=== PATIENT | female | born 1980 | race Caucasian/White ===

== ENCOUNTER 2019-03-28 09:52 | Emergency (ER) | payer MEDICAID, OTHER ==
[2019-03-28] MEDS ORDERED: NORMAL SALINE 1000 ML 1,000 ML IV ONE (10:29)
--- NOTE | 2019-03-28 10:31 | ER Document Report ---
ED Medical Screen (RME) - General Chief Complaint: Vomiting Stated Complaint: VOMITING Time Seen by Provider: 03/28/19 10:24 Primary Care Provider: THAO GARCIA MD [Primary Care Provider] - Follow up as needed Mode of Arrival: Wheelchair Information source: Patient Notes: Presents to the emergency department with complaints of nausea vomiting since . She reports she was evaluated and treated at [facility] emergency department on . She reports she was given an IV with fluids and a prescription for Phenergan and Zofran. She reports she still cannot stop vomiting. She reports as soon as the medications wear off she becomes nauseated and it if she attempts to drink anything she vomits. Denies fever and diarrhea. No other family members ill. Denies . 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 Reports she voided this morning without problems. Reports her chest is hurting now from vomiting so much. I have greeted and performed a rapid initial assessment of this patient. A comprehensive ED assessment and evaluation of the patient, analysis of test results and completion of the medical decision making process will be conducted by additional ED providers. Dictation of this chart was performed using voice recognition software; therefore, there may be some unintended grammatical errors. TRAVEL OUTSIDE OF THE [place] IN LAST 30 DAYS: No - Related Data Allergies/Adverse Reactions: No Known Allergies Allergy (Verified 03/28/19 10:19) Physical Exam - Vital signs Vitals: Temp Pulse Resp BP Pulse Ox 98.5 F 90 16 109/71 99 03/28/19 10:16 03/28/19 10:16 03/28/19 10:16 03/28/19 10:16 03/28/19 10:16 Course - Vital Signs Vital signs: Temp Pulse Resp BP Pulse Ox 98.5 F 90 16 109/71 99 03/28/19 10:16 03/28/19 10:16 03/28/19 10:16 03/28/19 10:16 03/28/19 10:16 Doctor's Discharge - Discharge Referrals: THAO GARCIA MD [Primary Care Provider] - Follow up as needed
[2019-03-28 11:04] LABS: ABSOLUTE LYMPHOCYTES (AUTO) 1.3 10^3/uL (0.5-4.7); ABSOLUTE MONOCYTES (AUTO) 0.9 10^3/uL (0.1-1.4); ABSOLUTE NEUT (AUTO) 12.7 10^3/uL (1.7-8.2); BASOPHILS % (AUTO) 0.3 % (0-2); EOSINOPHILS % (AUTO) 0.1 % (0-6); HEMATOCRIT 41.4 % (36.0-47.0); HEMOGLOBIN 14.1 g/dL (12.0-15.5); LYMPHOCYTES % (AUTO) 8.7 % (13-45); MEAN CORPUSCULAR HEMOGLOBIN 30.4 pg (27.0-33.4); MEAN CORPUSCULAR HGB CONC 34.1 g/dL (32.0-36.0); MEAN CORPUSCULAR VOLUME 89 fl (80-97); MONOCYTES % (AUTO) 6.2 % (3-13); PLATELET COUNT 244 10^3/uL (150-450); RED BLOOD COUNT 4.65 10^6/uL (3.72-5.28); RED CELL DISTRIBUTION WIDTH 13.5 % (11.5-14.0); SEGMENTED NEUTROPHILS % (AUTO) 84.7 % (42-78); TOTAL CELLS COUNTED % (AUTO) 100 %
[2019-03-28 11:19] LABS: AMORPHOUS SEDIMENT,URINE TRACE /HPF; APPEARANCE,URINE CLOUDY; BILIRUBIN,URINE NEGATIVE (NEGATIVE); COLOR,URINE AMBER; GLUCOSE, URINE NEGATIVE (NEGATIVE); KETONES,URINE 80 mg/dL (NEGATIVE); LEUKOCYTE ESTERASE,URINE TRACE (NEGATIVE); NITRITE,URINE NEGATIVE (NEGATIVE); PROTEIN,URINE 30 mg/dL (NEGATIVE)
[2019-03-28 11:20] LABS: ALANINE AMINOTRANSFERASE 24 U/L (9-52); ALBUMIN 4.3 g/dL (3.5-5.0); ALKALINE PHOSPHATASE 46 U/L (38-126); ANION GAP 8 (5-19); ASPARTATE AMINO TRANSFERASE 24 U/L (14-36); BILIRUBIN,DIRECT 0.2 mg/dL (0.0-0.4); BLOOD UREA NITROGEN 15 mg/dL (7-20); CALCIUM 9.6 mg/dL (8.4-10.2); CARBON DIOXIDE 26 mmol/L (22-30); CHLORIDE 110 mmol/L (98-107); GLUCOSE 97 mg/dL (75-110); POTASSIUM 3.8 mmol/L (3.6-5.0); SODIUM 143.5 mmol/L (137-145); TOTAL PROTEIN 7.1 g/dL (6.3-8.2)
[2019-03-28] MEDS ORDERED: DEXTROSE 5%-NORMAL SALINE 1,000 ML IV ONE (13:44)
[2019-03-28] MEDS ORDERED: KETOROLAC TROMETHAMINE INJ/PF 30 MG/1 ML SDV IV ONE (13:45)
[2019-03-28] MEDS ORDERED: ONDANSETRON HCL INJ/PF 4 MG/2 ML SDV IV ONE (13:57)
[2019-03-28] MEDS ORDERED: FAMOTIDINE INJ/PF 20 MG/2 ML SDV IV ONE (13:57)
--- NOTE | 2019-03-28 13:57 | ER Document Report ---
ED GI/ - General Chief Complaint: Vomiting Stated Complaint: VOMITING Time Seen by Provider: 03/28/19 10:24 Primary Care Provider: THAO GARCIA MD [ACTIVE STAFF] - Follow up as needed Mode of Arrival: Wheelchair Notes: This is a 38-year-old female patient emergency department chief complaint of nausea and vomiting for 3 days now. Patient was seen at another hospital 1 day ago. Was prescribed Zofran and Phenergan. States that she continues to vomit. Denies any abdominal pain or dysuria. Denies any other major issues. Denies any chest pain, shortness of breath or other issues at this time. TRAVEL OUTSIDE OF THE [place] IN LAST 30 DAYS: No - HPI Patient complains to provider of: Vomiting Timing/Duration: Gradual, Constant Quality of pain: No pain Severity at maximum: Moderate Severity in ED: Moderate Pain Level: Denies - Related Data Allergies/Adverse Reactions: No Known Allergies Allergy (Verified 03/28/19 10:19) Past Medical History - General Information source: Patient - Social History Smoking Status: Never Smoker Chew tobacco use (# tins/day): No Frequency of alcohol use: Rare Drug Abuse: None Lives with: Family Family History: Reviewed & Not Pertinent Patient has suicidal ideation: No Patient has homicidal ideation: No - Medical History Medical History: Negative Renal/ Medical History: Denies: Hx Peritoneal Dialysis Review of Systems - Review of Systems Notes: Constitutional: denies: Chills, Diaphoresis, Fever, Malaise, Weakness EENT: denies: Eye discharge, Blurred vision, Tearing, Double vision, Nose con gestion, Nose discharge, Throat swelling, Mouth pain Cardiovascular: denies: Palpitations, Heart racing, Orthopnea, Dyspnea, Chest pain Respiratory: denies: Cough, Hurts to breathe, Wheezing, Shortness of breath Gastrointestinal: denies: Abdominal pain, Diarrhea, Black stools, bright red blood in stool. +Nausea, Vomiting, Genitourinary: denies: Burning, Dysuria, Discharge, Frequency, Flank pain, Hematuria Musculoskeletal: denies: Joint pain, Joint swelling, Muscle pain, Muscle stiffness, back pain Hematologic/Lymphatic: denies: Anemia, Easy bleeding, Easy bruising, Blood clots Neurological/Psychological: denies: Confusion, Dementia, Depression, Loss of consciousness Skin: No lesions, no masses, no skin breakdown, no abscesses Physical Exam - Vital signs Vitals: Temp Pulse Resp BP Pulse Ox 98.5 F 90 16 109/71 99 03/28/19 10:16 03/28/19 10:16 03/28/19 10:16 03/28/19 10:16 03/28/19 10:16 Interpretation: Normal - General General appearance: Appears well, Alert - HEENT Head: Normocephalic, Atraumatic Eyes: Normal Pupils: PERRL - Respiratory Respiratory status: No respiratory distress Chest status: Nontender Breath sounds: Normal Chest palpation: Normal - Cardiovascular Rhythm: Regular Heart sounds: Normal auscultation Murmur: No - Abdominal Inspection: Normal Distension: No distension Bowel sounds: Normal Tenderness: Nontender Organomegaly: No organomegaly - Back Back: Normal, Nontender - Extremities General upper extremity: Normal inspection, Nontender, Normal color, Normal ROM, Normal temperature General lower extremity: Normal inspection, Nontender, Normal color, Normal ROM, Normal temperature, Normal weight bearing. No: Lydia's sign - Neurological Neuro grossly intact: Yes Cognition: Normal Orientation: AAOx4 Darek Coma Scale Eye Opening: Spontaneous [place] Coma Scale Verbal: Oriented [place] Coma Scale Motor: Obeys Commands Darek Coma Scale Total: 15 Speech: Normal Motor strength normal: LUE, RUE, LLE, RLE Sensory: Normal - Psychological Associated symptoms: Normal affect, Normal mood - Skin Skin Temperature: Warm Skin Moisture: Dry Skin Color: Normal Course - Re-evaluation Re-evalutation: 03/28/19 15:58 Laboratory 03/28/19 03/28/19 03/28/19 10:50 10:50 10:50 WBC 15.0 H RBC 4.65 Hgb 14.1 Hct 41.4 MCV 89 MCH 30.4 MCHC 34.1 RDW 13.5 Plt Count 244 Seg Neutrophils % 84.7 H Lymphocytes % 8.7 L Monocytes % 6.2 Eosinophils % 0.1 Basophils % 0.3 Absolute Neutrophils 12.7 H Absolute Lymphocytes 1.3 Absolute Monocytes 0.9 Absolute Eosinophils 0.0 Absolute Basophils 0.0 Sodium 143.5 Potassium 3.8 Chloride 110 H Carbon Dioxide 26 Anion Gap 8 BUN 15 Creatinine 0.72 Est GFR ( Amer) > 60 Est GFR (Non-Af Amer) > 60 Glucose 97 Calcium 9.6 Total Bilirubin 1.0 Direct Bilirubin 0.2 Neonat Total Bilirubin Not Reportable Neonat Direct Bilirubin Not Reportable Neonat Indirect Bili Not Reportable AST 24 ALT 24 Alkaline Phosphatase 46 Total Protein 7.1 Albumin 4.3 Lipase Serum HCG, Qual NEGATIVE Urine Color Urine Appearance Urine pH Ur Specific [place] Urine Protein Urine Glucose (UA) Urine Ketones Urine Blood Urine Nitrite Urine Bilirubin Urine Urobilinogen Ur Leukocyte Esterase Urine WBC (Auto) Urine RBC (Auto) Urine Bacteria (Auto) Squamous Epi Cells Auto Amorphous Sediment Auto Urine Mucus (Auto) Urine Ascorbic Acid 03/28/19 03/28/19 10:50 10:50 WBC RBC Hgb Hct MCV MCH MCHC RDW Plt Count Seg Neutrophils % Lymphocytes % Monocytes % Eosinophils % Basophils % Absolute Neutrophils Absolute Lymphocytes Absolute Monocytes Absolute Eosinophils Absolute Basophils Sodium Potassium Chloride Carbon Dioxide Anion Gap BUN Creatinine Est GFR ( Amer) Est GFR (Non-Af Amer) Glucose Calcium Total Bilirubin Direct Bilirubin Neonat Total Bilirubin Neonat Direct Bilirubin Neonat Indirect Bili AST ALT Alkaline Phosphatase Total Protein Albumin Lipase 70.3 Serum HCG, Qual Urine Color ZAIDA Urine Appearance CLOUDY Urine pH 5.0 Ur Specific [place] 1.030 Urine Protein 30 H Urine Glucose (UA) NEGATIVE Urine Ketones 80 H Urine Blood LARGE H Urine Nitrite NEGATIVE Urine Bilirubin NEGATIVE Urine Urobilinogen 2.0 H Ur Leukocyte Esterase TRACE H Urine WBC (Auto) 10 Urine RBC (Auto) 8 Urine Bacteria (Auto) TRACE Squamous Epi Cells Auto 20 Amorphous Sediment Auto TRACE Urine Mucus (Auto) MANY Urine Ascorbic Acid NEGATIVE Patient denies any abdominal pain at this time. Tolerating p.o. Feeling much better. Does have possible UTI so treated with Rocephin in the ER. Will discharge her at this time. Prescriptions given. Patient advised to return for any worsening symptoms or concerns. - Vital Signs Vital signs: Temp Pulse Resp BP Pulse Ox 97.9 F 64 16 119/68 100 03/28/19 16:37 03/28/19 16:37 03/28/19 16:37 03/28/19 16:37 03/28/19 16:37 - Laboratory Result Diagrams: 03/28/19 10:50 03/28/19 10:50 Laboratory results interpreted by me: 03/28/19 03/28/19 03/28/19 10:50 10:50 10:50 WBC 15.0 H Seg Neutrophils % 84.7 H Lymphocytes % 8.7 L Absolute Neutrophils 12.7 H Chloride 110 H Urine Protein 30 H Urine Ketones 80 H Urine Blood LARGE H Urine Urobilinogen 2.0 H Ur Leukocyte Esterase TRACE H Discharge - Discharge Clinical Impression: Gastritis Qualifiers: Gastritis type: unspecified gastritis Chronicity: unspecified Gastritis bleeding: without bleeding Qualified Code(s): K29.70 - Gastritis, unspecified, without bleeding UTI (urinary tract infection) Qualifiers: Urinary tract infection type: site unspecified Hematuria presence: without leona turia Qualified Code(s): N39.0 - Urinary tract infection, site not specified Condition: Good Disposition: HOME, SELF-CARE Instructions: Nausea or Vomiting, Nonspecific ([facility]), Urinary Tract Infection ([facility]) Additional Instructions: Take Zofran every 4-6 hours for the next 24 hours at least even if you are not having any vomiting. Once the vomiting starts it can be very difficult to stop. Continue with fluids as tolerated. Advance her diet as tolerated. Return immediately if you develop any specific abdominal pain. Follow-up with your regular doctor. Take all medications as prescribed. Return for any worsening symptoms or concerns. Prescriptions: Cephalexin Monohydrate [Keflex 500 mg Capsule] 500 mg PO Q6H 5 Days #20 capsule Ondansetron [Zofran Odt 4 mg Tablet] 1 - 2 tab PO Q4H PRN #15 tab.rapdis PRN Reason: For Nausea/Vomiting Ranitidine HCl [Zantac] 150 mg PO BID 10 Days #20 tablet Referrals: THAO GARCIA MD [ACTIVE STAFF] - Follow up as needed
[2019-03-28] MEDS ORDERED: CEFTRIAXONE 1 GM/D5W RTU 1 GM/50 ML RTUPB IV ONE (15:58)
[2019-03-28] MEDS ORDERED: ONDANSETRON HCL INJ/PF 4 MG/2 ML SDV ONE (16:35)
[2019-03-28 16:38] VITALS: BP 119/68
[2019-03-28 17:27] LABS: CHLAM PCR NOT DETECTED (NOT DETECT); GON PCR NOT DETECTED (NOT DETECT)
== END 2019-03-28 16:44 | disposition home or self-care (01) ==
LOC: ER 09:52
DX: K29.70 Gastritis, unspecified, without bleeding (principal); N39.0 Urinary tract infection, site not specified; R11.2 Nausea with vomiting, unspecified
CPT/HCPCS: 36415; 87086; 83690; 84703; 85025; 80053; 81001; 87491; 87591; J2405; J7042; J7030; S0028; J0696